=== PATIENT | female | born 1945 | race Caucasian/White ===

== ENCOUNTER → 2017-12-05 | Outpatient (CLI) | payer OTHER ==
[~2017-12-05] MED LIST: ASPI-516 CHEW; ATOR20TA15 PO; CLOP75TA PO; ERGO2000 PO; LANS30CA PO; METO50TA PO; POTA10CA PO; RISE1TAB13 PO
--- NOTE | 2017-12-05 13:45 | RADRPT ---
EXAM DATE: 12/05/2017 1:37 PM EDT AGE/SEX: 72 years / Female INDICATIONS: Short of breath. CLINICAL DATA: This is the patient's initial encounter. Patient reports that signs and symptoms have been present for 2 months and indicates a pain score of 0/10. MEDICAL/SURGICAL HISTORY: . lung cancer, chemotherapy, radiation None. COMPARISON: [facility], XR CHEST PA AND LAT, 09/12/2008. . FINDINGS: There are no prior studies for comparison. There is almost complete opacification of the right hemith orax most likely from a large right-sided pleural effusion. No significant midline shift is demonstra alana. The left lung is grossly clear and well aerated. The heart size is within normal limits. The bon y structures are grossly intact. CONCLUSION: 1. Almost complete opacification of the right hemithorax suggestive of a large right pleural effusio n. Recommend a noncontrast CT thorax for further evaluation. 2. The right lung is grossly clear. Electronically signed by: Jonathon Latif MD 12/05/2017 1:44 PM EDT
--- NOTE | 2017-12-05 14:46 | RADRPT ---
EXAM DATE: 12/05/2017 2:39 PM EDT AGE/SEX: 72 years / Female INDICATIONS: Stenosis. CLINICAL DATA: This is the patient's initial encounter. Patient reports that signs and symptoms have been present for 1 day and indicates a pain score of 0/10. MEDICAL/SURGICAL HISTORY: . Carotid stenosis. . Bilateral endarterectomy. COMPARISON: [facility], CHEST PA & LAT, 12/05/2017. . VELOCITY PARAMETERS: ICA/CCA Ratio: Right 0.4 , Left 0.3 ICA: Right 53.4 cm/sec, Left 41.9 cm/sec CCA: Right 143.5 cm/sec, Left 140.9 cm/sec ECA: Right 32.7 cm/sec, Left 34.0 cm/sec Vertebral: Right 51.5 cm/sec antegrade, Left 42.8 cm/sec antegrade FINDINGS: Right Carotid: There is a patent expandable stent in the common carotid artery. Mild atherosclerotic changes are demonstrated. No significant stenosis is visualized. The waveforms are within normal bush its. Left Carotid: There is a patent expandable stent in the common carotid artery. Mild atelectatic tabor es are demonstrated. No significant stenosis is visualized. The waveforms are within normal limits. CONCLUSION: 1. Bilateral patent expandable carotid stents in place. 2. Mild atherosclerotic changes bilaterally. 3. No focal high-grade or hemodynamically significant stenosis. Electronically signed by: Jonathon Latif MD 12/05/2017 2:45 PM EDT
--- NOTE | 2017-12-05 20:55 | MB ---
cc: Eric Self MD, Arjun D MD DATE: 12/05/2017 REQUESTING PHYSICIAN: Leda Blum REASON FOR CONSULTATION: Evaluate for pleural effusion and lung cancer. HISTORY OF PRESENT ILLNESS: Ms. Brooks is a 72-year-old female with a history of small cell carcinoma of the lung diagnosed in 2007. At that time, she received chemotherapy with SOLDERER ELECTRONIC-16 and cisplatin. She also received concomitant radiation treatment. Then she moved to [place] and she was being followed by the oncologist every year until 5 years ago. Now she has moved back over here a couple of months ago. She was having shortness of breath for the last 2 months. She was seen by her primary care physician and was sent for a chest x-ray which showed left large pleural effusion. The patient came to the emergency room. She had a CT scan of the chest done, which shows large pleural effusion with mass obstructing the right lower lobe. She has mild shortness of breath for the last 2 months or so. Denies any orthopnea, PND, has cough, no sputum production. No fever or chills. Her blood work shows WBC count 5.7, hemoglobin 12.7, hematocrit 38.1, MCV 77, platelet count 251. Sodium 138, potassium 3.9, chloride 102, CO2 of 25, BUN 10, creatinine 0.61. INR is 1.1. PAST MEDICAL HISTORY: Significant for history of small cell carcinoma of the lung, status post chemotherapy and radiation treatment, history of hypertension. CURRENT MEDICATIONS: 1. Metoprolol 50 mg a day. 2. Lipitor 20 mg a day. ALLERGIES: NO KNOWN DRUG ALLERGIES. SOCIAL HISTORY: She smoked for 40 years which she quit when she was diagnosed with cancer. No alcohol use. She worked in construction. FAMILY HISTORY: She is , lives with her daughter. She has 3 children. REVIEW OF SYSTEMS: Denies any weight loss. No headache or dizziness. No hemoptysis. No DVT or pulmonary embolism. PHYSICAL EXAMINATION: GENERAL: Elderly female, not in any acute distress. VITAL SIGNS: Blood pressure 171/103, heart rate 92, respirations 17, O2 saturation 100% on 2 liter nasal cannula. HEENT: Pupils are equal and reactive to light. She had bilateral cataract surgery done. Oral mucosa and nasal mucosa normal. NECK: Supple. JVP not raised. CHEST: Dull percussion with decreased breath sounds on the right side. CARDIOVASCULAR: S1, S2 normal. ABDOMEN: Soft, nontender, nondistended. Bowel sounds are present. EXTREMITIES: Trace edema. IMPRESSION: 1. Moderate to large right pleural effusion. 2. Possible likely endobronchial lesions in the lung. 3. Hypertension. 4. Small cell carcinoma of lung, status post chemotherapy and radiation treatment. PLAN: I discussed with patient. She will need thoracentesis, both diagnostic and therapeutic. Interventional radiology consulted for ultrasound-guided thoracentesis. After thoracentesis then we will evaluate. Probably she will need a bronchoscopy to rule out endobronchial lesion, particularly if the cytology is negative. Supplement her oxygen. Monitor her blood pressure. Oncology is consulted. Further treatment will depend on the course in the hospital. Thank you, Dr. Leda Blum, for this consult. MD KAM Gamble/ , 07:55 PM , 08:53 PM
--- NOTE | 2017-12-06 10:22 | RSPPFT ---
DATE OF PROCEDURE: 12/05/17 COMMENTS: Spirometry with FVC of 0.7 predicted 2.7, FEV1 of 0.5 predicted 21. Post-bronchodilator FVC increases to 0.6. Lung volumes could not be measured. DLCO is 12% of predicted. IMPRESSION: Patient apparently had difficulty performing the test and the flow volume loop is less than ideal. This interpretation shows possible restriction with some response to acutely inhaled bronchodilator should be regarded with caution and in the clinical context.
== END ==
LOC: HRSP 12:04
PROVIDERS: ATTEND Family Medicine
DX: R06.09 Other forms of dyspnea (principal); I65.29 Occlusion and stenosis of unspecified carotid artery
CPT/HCPCS: 71046; 93880; 94060; 94729